=== PATIENT | female | born 1975 | race Caucasian/White ===

== ENCOUNTER 2020-05-30 13:55 | Emergency (ER) | payer OTHER, SELFPAY ==
--- NOTE | ~2020-05-30 | XR_ITS ---
EXAMINATION: XR chest 2V DATE: 05/30/2020 15:19 INDICATION: Cough and shortness of breath. TECHNIQUE: Frontal and lateral views of the chest were obtained. COMPARISON: None. FINDINGS: The chest demonstrates clear lungs without pneumonia, pleural effusion, or pneumothorax. Th e heart size is normal. IMPRESSION: 1. No acute cardiopulmonary disease. Reviewed, dictated and finalized at location A.
[2020-05-30 13:58] VITALS: BP 139/67; PULSE 100; RESP 18; TEMP 37.2; O2SAT 98
[2020-05-30 14:27] VITALS: BP 147/78; PULSE 102; PULSE 103; RESP 18; TEMP 37.3; O2SAT 97
[2020-05-30] MEDS: SODIUM CHLORIDE 0.9% IV 1,000 ML 999 ML IV CONT (15:12)
[2020-05-30] MEDS: KETOROLAC 30 MG/ML VIAL (*BKC) IV PUSH (15:12)
[2020-05-30 15:14] LABS: Basophils Absolute Auto 0.1 K/mm3 (0.0-0.1); Basophils Percent Auto 0.6 % (0.2-1.2); Eosinophils Absolute Auto 0.2 K/mm3 (0-0.3); Eosinophils Percent Auto 1.7 % (0-4.4); Hematocrit 41.8 % (37.0-47.0); Hemoglobin 14.2 g/dL (12.0-15.0); Immature Granulocyte Absolute 0.04 K/mm3 (0.00-0.031); Immature Granulocyte Percent A 0.3 % (0-0.5); Lymphocytes Percent Auto 22.7 % (18.3-44.2); Mean Corpuscular Hemoglobin 29.4 pg (26-34); Mean Corpuscular Volume 86.5 fl (80-100); Mean Platelet Volume 10.1 fl (7.4-10.4); Monocytes Absolute Auto 1.2 K/mm3 (0.1-0.6); Neutrophils Absolute Auto 7.4 K/mm3 (1.3-6.7); Neutrophils Percent Auto 64.7 % (45.5-73.1); Platelet Count Result 327 k/mm3 (150-375); Red Blood Count 4.83 M/mm3 (4.2-5.4); Red Cell Distribution Width 12.7 % (11.5-14.5); White Blood Count 11.5 K/mm3 (4.5-10.0)
--- NOTE | 2020-05-30 15:22 | ED.SOB ---
HPI - SOB/Dyspnea General Chief Complaint: Shortness of Breath/Dyspnea Stated Complaint: shortness breath, tachycardia Time Seen by Provider: 05/30/20 14:35 History of Present Illness HPI Narrative: Patient is a 45-year-old female who presents ER with multiple complaints. Over the course the last week she has developed upper respiratory infection type symptoms. She has been swab for COVID which is come back as negative. She has had sinus congestion with cough. It is also started because some central chest discomfort that is been ongoing for 4 days. It has never gone away. No exertional component. Not particular worsened by taking deep breaths. We will concerns her most is in the evening last night her resting heart rate went up to 140 bpm. She thinks this may have made her chest discomfort slightly worse. She does report that the elevated heart rate corresponded with an elevation in her baseline temperature but she was afebrile. Related Data Home Medications Medication Instructions Recorded Confirmed azithromycin 05/30/20 lisinopril 05/30/20 Allergies Allergy/AdvReac Type Severity Reaction Status Date / Time cefaclor Allergy Unknown HIVES Verified 05/30/20 14:30 codeine Allergy Unknown HIVES Verified 05/30/20 14:30 Sulfa (Sulfonamide Allergy Unknown HIVES Verified 05/30/20 14:30 Antibiotics) Review of Systems Review of Systems: All systems reviewed & are unremarkable except as noted in HPI and below Constitutional: Constitutional: Denies chills, Reports fatigue and Denies fever(s) ENT: Reports nasal congestion and Denies sore throat Cardiovascular: Cardiovascular: Reports chest pain, Reports rapid heart rate and Denies radiating jaw, neck or arm pain Respiratory: Respiratory: Reports cough and Reports dyspnea Gastrointestinal: Gastrointestinal: Denies abdominal pain, Denies nausea and Denies vomiting Musculoskeletal: Musculoskeletal: Denies myalgias and Denies muscle cramps PMFSH Past Medical History Medical History (Updated 05/30/20 @ 18:36 by Jcarlos Garcia MD) Anxiety Surgical History Surgical History (Updated 05/30/20 @ 15:24 by Jcarlos Garcia MD) No history of previous surgery Social History Social History (Updated 05/30/20 @ 15:24 by Jcarlos Garcia MD) Smoking status: Never smoker Gender identity (if verbalized by the patient): Female Exam Narrative: Exam Narrative: GENERAL: Well-appearing, well-nourished, and in no acute distress. HEAD: Normocephalic, atraumatic. CHEST: Clear to auscultation. No respiratory distress. HEART: Regular rate and rhythm. No murmur heard. Normal peripheral pulses. ABDOMEN: Soft, nontender, nondistended. EXTREMITIES: Normal range of motion. No edema. SKIN: Warm, dry, no rash. NEURO: Alert and oriented x3. PSYCH: Normal mood and affect. Course Course Emergency Course: Patient informed of results. Chest discomfort gone with Toradol. May have component of pleurisy from her URI. Vital Signs Vital signs: Vital Signs Temperature 99.0 F 05/30/20 13:58 Pulse Rate 100 05/30/20 13:58 Respiratory Rate 18 05/30/20 13:58 Blood Pressure 139/67 05/30/20 13:58 Pulse Oximetry 98 05/30/20 13:58 Temperature 99.1 F 05/30/20 14:27 Pulse Rate 75 05/30/20 17:12 Respiratory Rate 15 05/30/20 17:12 Blood Pressure 111/59 L 05/30/20 17:12 Pulse Oximetry 98 05/30/20 17:12 MDM - SOB/Dyspnea Lab Data Result diagrams: 05/30/20 15:07 05/30/20 15:07 Labs: Lab Results 05/30/20 05/30/20 05/30/20 Range/Units 15:06 15:07 15:07 WBC 11.5 H (4.5-10.0) K/mm3 RBC 4.83 (4.2-5.4) M/mm3 Hgb 14.2 (12.0-15.0) g/dL Hct 41.8 (37.0-47.0) % MCV 86.5 (80-100) fl MCH 29.4 (26-34) pg MCHC 34.0 (32-36) g/dl RDW 12.7 (11.5-14.5) % Plt Count 327 (150-375) k/mm3 MPV 10.1 (7.4-10.4) fl Immature Gran % (Auto) 0.3 (0-0.5) % Neut % (Auto) 64
[2020-05-30 15:23] LABS: Prothrombin Time 12.8 Seconds (11.1-14.7)
[2020-05-30 15:25] LABS: Anion Gap 7 mmol/L (8-16); Blood Urea Nitrogen 10 mg/dL (7-17); Calcium 8.8 mg/dL (8.4-10.2); Carbon Dioxide 22 mmol/L (22-30); Chloride 109 mmol/L (98-107); Estimated CRCL calculation 92 ml/min; Estimated Glomerular Filt Rate > 60; Glucose 114 mg/dL (65-105); Potassium 4.3 mmol/L (3.4-5.0); Sodium 138 mmol/L (137-145)
[2020-05-30 15:37] LABS: Troponin I < 0.012 ng/mL (0.000-0.034)
--- NOTE | 2020-05-30 16:53 | ECG_ITS ---
Measurements Intervals [place] Rate: 72 P: 46 UT: 133 QRS: 70 QRSD: 86 T: 38 QT: 405 QTc: 444 Interpretive Statements SINUS RHYTHM BORDERLINE ST ABNORMALITY- ANTERIOR LEADS BORDERLINE ECG Electronically Signed On 05-31-2020 6:43:48 CDT by George Saha D.O.
[2020-05-30 17:12] VITALS: BP 111/59; PULSE 75; RESP 15; O2SAT 98
[2020-05-30 18:50] VITALS: BP 147/78; PULSE 82; RESP 18; O2SAT 98
== END 2020-05-30 18:52 | disposition home or self-care (01) ==
PROVIDERS: Emergency Provider Emergency Medicine; PCP Physician Assistant
DX: R09.1 Pleurisy (principal); R94.31 Abnormal electrocardiogram [ECG] [EKG]
CPT/HCPCS: 36415; 71046; 80048; 84484; 85025; 85380; 85610; 85730; 93005; 96361; 96374; 99284; J1885; J7030

== ENCOUNTER 2020-08-07 18:13 | Emergency (ER) | payer OTHER, SELFPAY ==
--- NOTE | ~2020-08-07 | CT_ITS ---
EXAMINATION: CT abdomen pelvis wo con DATE: 08/07/2020 19:39 INDICATION: Right flank pain. Nausea. TECHNIQUE: Computed tomography (CT) of the abdomen and pelvis was performed without intravenous contr ast. Automated exposure control and iterative reconstruction technique were employed. Exam dose: 413 .54 mGy-cm total exam DLP. COMPARISON: None. FINDINGS: The lung bases are clear of infiltrate or consolidation. Normal heart size. No pericardial or pleural effusion. Right foramen of Bochdalek hernia containing fat and a portion of the right kidney. Left foramen of Bochdalek hernia containing fat. The liver, gallbladder, bile ducts, spleen, pancreas and pancreatic duct are unremarkable. Normal mor phology of the adrenal glands. No renal space occupying mass lesion is evident on this limited noncon trast examination. No urinary tract calculus or hydroureteronephrosis is evident. There are bilateral calcified pelvic p hleboliths. Normal caliber of the abdominal aorta. No intraperitoneal or retroperitoneal or pelvic mass lesion or adenopathy or ascites. The urinary bladder, uterus and adnexal areas are unremarkable. Normal appendix. No bowel obstruction, bowel wall thickening, pneumatosis or intraperitoneal free air . Small fat-containing umbilical hernia. Degenerative change at the apophyseal joints with associated grade 1 anterolisthesis at L4-5. There i s degenerative change in the lower thoracic spine. No suspicious osteolytic or osteoblastic lesions. IMPRESSION: No urinary tract calculus or hydroureteronephrosis is detected. Normal appendix Foramen of Bochdalek hernias Reviewed, dictated and finalized at [facility]. Reviewed, dictated and finalized at location A. [employer]
[2020-08-07 18:42] VITALS: BP 144/90; PULSE 69; RESP 20; TEMP 36.6; O2SAT 100
[2020-08-07 19:01] LABS: Add Urine Microscopic? NO; Appearance Urine Clear (Clear); Basophils Absolute Auto 0.06 K/mm3 (0.00-0.10); Basophils Percent Auto 0.6 % (0.0-1.0); Bilirubin Urine Negative (Negative); Blood Urine Negative (Negative); Color Urine Straw (Yellow); Eosinophils Absolute Auto 0.22 K/mm3 (0.02-0.50); Eosinophils Percent Auto 2.3 % (1.0-6.0); Glucose Urine UA Negative (Negative); Hematocrit 41.2 % (35.0-49.0); Hemoglobin 13.9 g/dL (12.0-15.0); Immature Granulocyte Absolute 0.05 K/mm3 (0.00-0.00); Immature Granulocyte Percent A 0.5 % (0.0-0.0); Ketones Urine Negative (Negative); Leukocyte Esterase Ur Negative (Negative); Mean Corpuscular HGB Conc 33.7 g/dL (32.0-36.0); Mean Corpuscular Volume 88.8 fL (78.0-102.0); Mean Platelet Volume 9.9 fl (9.2-11.8); Monocytes Percent Auto 7.2 % (2.0-11.0); Neutrophils Absolute Auto 5.5 K/mm3 (1.7-7.2); Neutrophils Percent Auto 56.4 % (50.0-70.0); Nitrate Urine Negative (Negative); Platelet Count Result 330 K/mm3 (150-420); Protein Urine Negative (Negative); Red Blood Count 4.64 M/mm3 (4.20-5.40); Red Cell Distribution Width 12.4 % (11.6-14.4); Specific Grav Ur <= 1.005 (1.010-1.020); Urobilinogen Urine 0.2 mg/dL (0.2-1.0); White Blood Count 9.7 K/mm3 (4.8-10.8); pH Urine 5.5 (5.0-8.0)
[2020-08-07 19:03] LABS: Pregnancy On Board Control Positive; Urine Pregnancy Test Negative
[2020-08-07 19:20] LABS: Alanine Aminotransferase 16 U/L (14-59); Albumin Level 4.1 g/dL (3.4-5.0); Alkaline Phosphatase 48 U/L (46-116); Anion Gap 11 mmol/L (8-16); Aspartate Amino Transferase < 10 U/L (15-37); Bilirubin,Total 0.4 mg/dL (0.00-1.00); Blood Urea Nitrogen 12 mg/dL (7-18); Calcium 8.7 mg/dL (8.5-10.1); Carbon Dioxide 24 mmol/L (21-32); Chloride 103 mmol/L (98-108); Estimated CRCL calculation 82 ml/min; Estimated Glomerular Filt Rate > 60; Glucose 87 mg/dL (70-99); Osmolality Calculated 284 mOsm/kg (285-295); Potassium 3.7 mmol/L (3.5-5.1); Sodium 138 mmol/L (136-145); Total Protein 7.7 g/dL (6.4-8.2)
[2020-08-07] MEDS: ONDANSETRON INJ 4 MG/2 ML VIAL IV PUSH (19:21)
[2020-08-07] MEDS: KETOROLAC 30 MG/ML VIAL (*BKC) IV PUSH (19:21)
[2020-08-07] MEDS: SODIUM CHLORIDE 0.9% IV 1,000 ML 999 ML IV CONT (19:21)
--- NOTE | 2020-08-07 20:30 | ED.ABDPAIN ---
HPI - Abdominal Pain General Chief Complaint: Abdominal Pain Stated Complaint: Admonial Pain Source: patient History of Present Illness HPI narrative: Some 45-year-old female presents with some right flank pain radiating radiating into her right groin area started earlier today she rates her pain about an 8/10 has been having some nausea with no diarrhea constipation no fever or chills. Patient denies shortness of breath or chest pain or pressure. Does have a history of hypertension and anxiety depression. MD elicited complaint: abdominal pain Onset (ago): hour(s) Pain Consistency: intermittent Location: R flank Severity: moderate Pain scale (0-10): 8 Quality: aching Radiation: R flank Migration to: no migration Exacerbating factors: nothing Relieving factors: nothing Related Data Home Medications Medication Instructions Recorded Confirmed lisinopril 20 mg PO DAILY 05/30/20 08/07/20 buspirone 10 mg PO TID 08/07/20 08/07/20 Allergies Allergy/AdvReac Type Severity Reaction Status Date / Time cefaclor Allergy Unknown HIVES Verified 08/07/20 18:52 codeine Allergy Unknown HIVES Verified 08/07/20 18:52 Sulfa (Sulfonamide Allergy Unknown HIVES Verified 08/07/20 18:52 Antibiotics) Review of Systems Review of Systems: All systems reviewed & are unremarkable except as noted in HPI and below PMFSH Past Medical History Medical History Anxiety Surgical History Surgical History No history of previous surgery Social History Social History Smoking status: Never smoker Gender identity (if verbalized by the patient): Female Exam Const: General: no acute distress Orientation/consciousness: patient oriented x3 HENMT: Head: normal to inspection Eyes: Conjunctivae: conjunctivae normal Neck: Neck: normal visual inspection Chest: Chest palpation & inspection: normal inspection of the chest Resp: Effort & Inspection: normal respiratory effort GI: GI Palp: Yes Soft to palpation : General: Yes CVA tenderness Back/Spine/Pelvis: Back: CVA tenderness Skin: General skin exam: normal color Rashes: no rashes Extrem: General: normal to inspection and no pedal edema Psych: Appearance: grossly normal Mental Status: mental status grossly normal Affect: normal affect Course Course Emergency Course: Patient received some Toradol and currently rates her pain after reassessment from at 10 to about a 4/10 with nausea improved. Vital Signs Vital signs: Vital Signs Temperature 36.6 C 08/07/20 18:42 Pulse Rate 69 08/07/20 18:42 Respiratory Rate 20 08/07/20 18:42 Blood Pressure 144/90 H 08/07/20 18:42 Pulse Oximetry 100 08/07/20 18:42 Temperature 36.6 C 08/07/20 18:42 Pulse Rate 69 08/07/20 18:42 Respiratory Rate 08/07/20 18:42 Blood Pressure 144/90 H 08/07/20 18:42 Pulse Oximetry 100 08/07/20 18:42 MDM - Abdominal Pain Lab Data Result diagrams: 08/07/20 18:56 08/07/20 18:56 Labs: Lab Results 08/07/20 08/07/20 08/07/20 Range/Units 18:56 18:56 18:56 WBC 9.7 (4.8-10.8) K/mm3 RBC 4.64 (4.20-5.40) M/mm3 Hgb 13.9 (12.0-15.0) g/dL Hct 41.2 (35.0-49.0) % MCV 88.8 (78.0-102.0) fL MCH 30.0 (27.0-31.0) pg MCHC 33.7 (32.0-36.0) g/dL RDW 12.4 (11.6-14.4) % Plt Count 330 (150-420) K/mm3 MPV 9.9 (9.2-11.8) fl Immature Gran % (Auto) 0.5 H (0.0-0.0) % Neut % (Auto) 56.4 (50.0-70.0) % Lymph % (Auto) 33.0 (18.0-42.0) % White % (Auto) 7.2 (2.0-11.0) % Eos % (Auto) 2.3 (1.0-6.0) % Baso % (Auto) 0.6 (0.0-1.0) % Lymph # (Auto) 3.20 (1.10-4.50) K/mm3 White # (Auto) 0.70 (0.10-0.90) K/mm3 Eos # (Auto) 0.22 (0.02-0.50) K/mm3 Baso # (Auto) 0.06 (0.00-0.10) K/mm3 Abs Immat Gran (aut
[2020-08-07 21:16] VITALS: BP 140/88; PULSE 70; RESP 20; O2SAT 100
== END 2020-08-07 21:21 | disposition home or self-care (01) ==
PROVIDERS: Emergency Provider Emergency Medicine; PCP Physician Assistant
DX: K52.9 Noninfective gastroenteritis and colitis, unspecified (principal)
CPT/HCPCS: 36415; 74176; 80053; 81003; 81025; 85025; 96361; 96374; 96375; 99283; 99284; J1885; J2405; J7030

== ENCOUNTER 2020-08-12 07:43 | Outpatient (CLI) | payer OTHER, SELFPAY ==
--- NOTE | ~2020-08-12 | US_ITS ---
EXAMINATION: US right upper quadrant DATE: 08/12/2020 08:13 INDICATION: Right upper quadrant abdominal pain. TECHNIQUE: Multiple grayscale and Doppler ultrasound images of the abdomen were obtained. COMPARISON: CT abdomen and pelvis 08/07/2020 FINDINGS: The visualized portions of the head and body of the pancreas are normal. The liver is esthela l without focal lesion. There is normal flow in main portal vein. The gallbladder is normal in size. No gallstones or gallbladder wall thickening. There was no sonographic Porras sign. The common duct i s normal and measures 3 mm. IMPRESSION: 1. Normal right upper quadrant ultrasound. Reviewed, dictated and finalized at location A. ILIZATION TECH
== END 2020-08-12 07:44 | disposition home or self-care (01) ==
LOC: CHSIMG 07:45
PROVIDERS: PCP Physician Assistant; Visit Provider Physician Assistant
DX: R10.31 Right lower quadrant pain (principal); R10.11 Right upper quadrant pain
CPT/HCPCS: 76705

== ENCOUNTER 2021-01-05 16:42 | Outpatient (CLI) | payer OTHER, SELFPAY | END 2021-01-05 16:43 | disposition home or self-care (01) | LOC: ANHCOVIDVC 16:42 | DX: Z23 Encounter for immunization (principal) | CPT/HCPCS: 0001A; 91300 ==

== ENCOUNTER 2021-01-26 16:43 | Outpatient (CLI) | payer OTHER, SELFPAY | END 2021-01-26 16:44 | disposition home or self-care (01) | LOC: ANHCOVIDVC 16:43 | PROVIDERS: PCP Family Medicine | DX: Z23 Encounter for immunization (principal) | CPT/HCPCS: 0002A; 91300 ==

== ENCOUNTER → 2021-02-13 08:03 | Outpatient (CLI) | payer OTHER, SELFPAY ==
[2021-02-13 19:22] LABS: SARS-CoV-2 RNA PCR Negative
== END ==
PROVIDERS: PCP Family Medicine; Visit Provider Internal Medicine Gastroenterology
DX: Z01.812 Encounter for preprocedural laboratory examination (principal); Z20.822 Contact with and (suspected) exposure to COVID-19
CPT/HCPCS: C9803; U0003; U0005

== ENCOUNTER 2021-02-16 00:24 | Day surgery (SDC) | payer OTHER, SELFPAY ==
[2021-02-05 14:39] VITALS: BMI 38.5
[2021-02-16 12:26] VITALS: BP 129/80; PULSE 65; RESP 18; TEMP 36.6; O2SAT 99; BMI 17.4
[2021-02-16] MEDS: LACTATED RINGERS 1,000 ML 150 ML IV CONT (12:39)
--- NOTE | 2021-02-16 12:41 | P.PNAN_ITS ---
Anes - Initial Pre Proc Eval Procedure: Operation Date: 02/16/21 12:45 Proposed Procedures p Esophagogastroduodenoscopy & Colonoscopy - Duane Townsend MD Date/Time: 02/16/21 12:41 Surgeon: Duane Townsend MD Pre Op Diagnosis: abd pain Patient Data Age: 45 Gender: F Height: 5 ft 5 in Weight: 47.5 kg Last Vital Signs Temp 36.6 C 02/16/21 12:26 Pulse 65 02/16/21 12:26 Resp 18 02/16/21 12:26 BP 129/80 02/16/21 12:26 Pulse Ox 99 02/16/21 12:26 Allergies Allergy/AdvReac Type Severity Reaction Status Date / Time cefaclor Allergy Unknown HIVES Verified 02/16/21 12:22 codeine Allergy Unknown HIVES Verified 02/16/21 12:22 Sulfa (Sulfonamide Allergy Unknown HIVES Verified 02/16/21 12:22 Antibiotics) Home Medications Medication Instructions Recorded Confirmed Type buspirone 10 mg PO TID 08/07/20 02/05/21 History lisinopril 20 mg tablet 20 mg PO DAILY #30 tablet 12/04/20 02/05/21 Rx amlodipine 2.5 mg tablet 2.5 mg PO DAILY 12/31/20 02/05/21 History Patient hx anesthesia problems: none Family hx anesthesia problems: none PMFSH Past Medical History Medical History Abdominal pain Acute sinusitis Anxiety Hypertension Obesity (BMI 30-39.9) Psoriasis and similar disorder Surgical History Surgical History No history of previous surgery Social History Social History Smoking packs per day: 1 Smoking cigarettes per day: 20.0 Years smoked: 7 Smoking pack-years: 7.00 Smoking status: Former smoker Alcohol intake: current Alcohol use details: very rarely Substance use: never Substance use type: does not use Living arrangements: alone Additional occupation/education comments: Works at [employer] Gender identity (if verbalized by the patient): Female Spiritual care concerns: No Anes - Eval Final PreProcedure Day of Procedure 02/16/21 12:41 Patient weight: obese Heart: regular rate and rhythm Lungs: clear to auscultation Airway: Mallampati scale class II Neurological: alert and oriented Last oral intake: >/= 8 hours ASA classification: II Emergent: no Anesthetic plan: proceed Anesthesia type and monitoring: general GIVS and standard monitoring Informed Consent: The patient's anesthetic plan and its attendant risks and benefits were discussed with the patient/family/POA. Questions were solicited and answers provided to the satisfaction of the patient/family/POA.
--- NOTE | 2021-02-16 12:53 | PM.HPGS ---
History of Present Illness History of Present Illness Consent: Risks, benefits, and alternatives have been discussed and questions answered. Patient agrees to proceed with procedure. Chief complaint: abd pain Narrative: Eva Wells is a 45 year old female here with intermittent pain in ruq, CT scan revealed right foramen of Bochdalek hernia, never had scopes. Review of Systems Constitutional: Constitutional: Denies headache(s) and Denies weakness Eyes: Eyes: Denies blurry vision ENT: Reports Normal hearing present, Denies headache(s) and Denies neck pain Cardiovascular: Cardiovascular: Denies chest pain and Denies dyspnea Respiratory: Respiratory: Denies dyspnea Gastrointestinal: Gastrointestinal: Reports no additional gastrointestinal complaints Genitourinary: Genitourinary: Denies dysuria Musculoskeletal: Musculoskeletal: Denies neck pain Integumentary/Breasts: Skin/Breast: Denies dry skin Neurologic: Reports Normal hearing present, Denies headache(s) and Denies weakness Psychiatric: Psychiatric: Denies anxiety Endocrine: Endocrine: Denies change in body appearance Hematologic/Lymphatic: Hematologic/Lymphatic: Denies easy bleeding Allergic/Immunologic: Allergic/Immunologic: Denies urticaria PMFSH Past Medical History Medical History (Updated 02/16/21 @ 12:53 by Duane Townsend MD) Abdominal pain Acute sinusitis Anxiety Colon cancer screening Hypertension Obesity (BMI 30-39.9) Psoriasis and similar disorder Surgical History Surgical History No history of previous surgery Social History Social History Smoking packs per day: 1 Smoking cigarettes per day: 20.0 Years smoked: 7 Smoking pack-years: 7.00 Smoking status: Former smoker Alcohol intake: current Alcohol use details: very rarely Substance use: never Substance use type: does not use Living arrangements: alone Additional occupation/education comments: Works at [employer] Gender identity (if verbalized by the patient): Female Spiritual care concerns: No Meds Home Medications and Allergies Home Medications Medication Instructions Recorded Confirmed Type buspirone 10 mg PO TID 08/07/20 02/05/21 History lisinopril 20 mg tablet 20 mg PO DAILY #30 tablet 12/04/20 02/05/21 Rx amlodipine 2.5 mg tablet 2.5 mg PO DAILY 12/31/20 02/05/21 History Allergies Allergy/AdvReac Type Severity Reaction Status Date / Time cefaclor Allergy Unknown HIVES Verified 02/16/21 12:22 codeine Allergy Unknown HIVES Verified 02/16/21 12:22 Sulfa (Sulfonamide Allergy Unknown HIVES Verified 02/16/21 12:22 Antibiotics) Vital Signs Vital Signs - 24 hr 02/16/21 12:26 Temperature 97.8 F Pulse Rate 65 Respiratory Rate 18 Blood Pressure 129/80 Pulse Oximetry 99 Exam Const: General: comfortable and no acute distress HENMT: General nose exam: Normal nares present Eyes: General: appearance normal, both eyes and all related structures Neck: Neck: no JVD Resp: Auscultation: clear to auscultation bilaterally Cardio: Rate: regular rate Rhythm: regular rhythm GI: Inspection: non-distended GI Palp: Yes Soft to palpation Skin: General skin exam: normal color Neuro: General: gait normal Speech: normal speech Extrem: General: normal to inspection Psych: Mental Status: mental status grossly normal Assessment and Plan Assessment and plan (1) Abdominal pain: Code(s): R10.9 - Unspecified abdominal pain Status: Acute Assessment and Plan: egd with bx. If scopes negative then consider surgery referral (2) Colon cancer screening: Code(s): Z12.11 - Encounter for screening for malignant neoplasm of colon Status: Acute Assessment and Plan: colonoscopy
[2021-02-16 13:24] VITALS: BP 98/68; PULSE 72; RESP 25; O2SAT 98
[2021-02-16 13:30] VITALS: BP 105/35; PULSE 68; RESP 20; O2SAT 98
[2021-02-16 13:40] VITALS: BP 113/58; PULSE 56; RESP 17; O2SAT 99
== END 2021-02-16 13:49 | disposition home or self-care (01) ==
PROVIDERS: PCP Family Medicine; Visit Provider Internal Medicine Gastroenterology
PROC: 0DJ08ZZ Inspection of Upper Intestinal Tract, Via Natural or Artificial Opening Endoscopic (ICD-10-PCS; CPT 43235; principal; 2021-02-16 12:45)
DX: R10.11 Right upper quadrant pain (principal); Z12.11 Encounter for screening for malignant neoplasm of colon; K29.50 Unspecified chronic gastritis without bleeding; K57.30 Diverticulosis of large intestine without perforation or abscess without bleeding; K64.8 Other hemorrhoids; E66.9 Obesity, unspecified; I10 Essential (primary) hypertension; L40.9 Psoriasis, unspecified; F41.9 Anxiety disorder, unspecified; Z87.891 Personal history of nicotine dependence
CPT/HCPCS: 43239; 45378; 87081; 88305; C9803; J2704; J7120; U0003; U0005

== ENCOUNTER 2021-03-09 08:01 | Outpatient (CLI) | payer OTHER, SELFPAY ==
--- NOTE | ~2021-03-09 | US_ITS ---
US abdomen complete EXAMINATION: US Abdomen Complete INDICATION: Abdominal pain PROCEDURE: Realtime High Resolution abdomen ultrasound. COMPARISON: No prior studies for comparison FINDINGS: Gallbladder within normal limits. No gallstones, pericholecystic fluid, gallbladder wall t hickening or biliary dilatation. Common bile duct measures 5 mm. Liver echotexture within normal limits without focal mass. Pancreas within normal limits. Pancreati c tail is obscured by bowel gas. Spleen is unremarkeable. Renal echotexture is within normal limits bilaterally without hydronephrosis, contour deforming mass or renal stone. Right kidney measures 11.4 cm. Left kidney measures 11.4 cm. Visualized aspects of the aorta and IVC are within normal limits. Portal vein is patent. No sonograph ic Porras's sign indicated by the technologist. IMPRESSION: 1: Normal abdominal ultrasound. Reviewed, dictated and finalized at location A.
--- NOTE | ~2021-03-09 | CT_ITS ---
EXAMINATION: CT abdomen pelvis w con EXAM DATE: 03/09/2021 09:00 INDICATION: RT sided abd pain x 6mo w/ N/D -worse w/ exercise. TECHNIQUE: Spiral CT of the abdomen and pelvis was performed following intravenous injection of 100 m L Omnipaque 350. Axial, coronal and sagittal images of the abdomen and pelvis were reviewed. The do se-length product (DLP) for this examination was 1101.90 mGy-cm. The exposure was tailored according to patient size (auto mA exposure control), and iterative reconstruction (ASIR) was used as addition al dose reduction technique. Comparison is made to prior examination from 08/07/2020. FINDINGS: The liver, spleen, adrenal glands and pancreas are unremarkable. Gallbladder is unremarkab le. No biliary obstruction. Portal and splenic veins are patent. Kidneys enhance symmetrically. T here is no hydronephrosis. The uterus and ovaries are unremarkable, no adnexal mass. Calcifications in the pelvis are believed to be phleboliths. The bladder is unremarkable. There is no retroperit najera or pelvic lymphadenopathy. The appendix is normal. There is small sliding gastroesophageal hiatal hernia. There is expected am ount of colonic stool. No free intraperitoneal gas. The heart is normal in size. There are no pe ricardial or pleural effusions. Calcified granuloma in right and left lower lobes. There are no ost eoblastic or osteolytic lesions identified. IMPRESSION: 1. Small hiatal hernia. Reviewed, dictated and finalized at location B. IMPRESSION: 1. Small hiatal hernia.
[2021-03-09 08:20] LABS: Estimated Glomerular Filt Rate > 60
== END 2021-03-09 08:02 | disposition home or self-care (01) ==
LOC: CHSIMG 08:02
PROVIDERS: PCP Family Medicine; Visit Provider Family Medicine
DX: R10.9 Unspecified abdominal pain (principal); Q79.0 Congenital diaphragmatic hernia
CPT/HCPCS: 74177; 76700; Q9967

== ENCOUNTER 2021-06-04 17:26 | Outpatient (CLI) | payer OTHER, SELFPAY ==
[2021-06-04 18:24] LABS: SARS-CoV-2 RNA PCR Positive (Negative)
== END 2021-06-04 17:27 | disposition home or self-care (01) ==
LOC: CHSLAB 17:29
PROVIDERS: PCP Family Medicine; Visit Provider Family Medicine
DX: U07.1 COVID-19 (principal)
CPT/HCPCS: C9803; U0003; U0005

== ENCOUNTER 2021-06-05 13:56 | Outpatient (CLI) | payer OTHER, SELFPAY ==
[2021-06-05] MEDS: ACETAMINOPHEN 325 MG TABLET 650 MG PO (14:23)
[2021-06-05] MEDS: diphenhydrAMINE HCl CAP 25 MG CAPSULE PO (14:24)
[2021-06-05] MEDS: FAMOTIDINE 20 MG TABLET PO (14:24)
--- NOTE | 2021-06-05 16:49 | PC.NURSE ---
patient tolerated infusion. questions answered. vs stable. walked out with staff. masked. denies sob.
== END 2021-06-05 13:57 | disposition home or self-care (01) ==
LOC: CHSTREATRM 13:58
PROVIDERS: PCP Family Medicine; Visit Provider Family Medicine
DX: Z23 Encounter for immunization (principal); U07.1 COVID-19; E66.9 Obesity, unspecified
CPT/HCPCS: A9270; J7050; M0239; M0243

== ENCOUNTER 2021-06-30 17:07 | Outpatient (CLI) | payer OTHER, SELFPAY ==
--- NOTE | ~2021-06-30 | MM_ITS ---
EXAMINATION: MM screening liv BI w noel HISTORY: Screening mammogram TECHNIQUE: Craniocaudal and mediolateral oblique 3-D tomosynthesis images were obtained and synthetic 2-D images were generated. CAD analysis was submitted and interpreted. COMPARISON: 04/05/2011 BREAST PARENCHYMAL COMPOSITION: The breasts are heterogeneously dense, which may obscure small masses . FINDINGS: RIGHT BREAST: A mass is present in the middle third of the lower, slightly outer breast 6.8 cm from t he nipple. LEFT BREAST: There is no evidence of suspicious mass, calcification, or architectural distortion to s uggest malignancy. There has been no significant interval change. IMPRESSION: 1. Right breast mass. 2. Additional mammographic views and possible breast ultrasound are recommended. BI-RADS Category 0: Incomplete: Needs additional imaging evaluation. Reviewed, dictated and finalized at location A. IMPRESSION: 1. Right breast mass. 2. Additional mammographic views and possible breast ultrasound are recommended . BI-RADS Category 0: Incomplete: Needs additional imaging evaluation.
== END 2021-06-30 17:08 | disposition home or self-care (01) ==
LOC: ANHIMG 17:10
PROVIDERS: PCP Family Medicine; Visit Provider Obstetrics & Gynecology
DX: Z12.31 Encounter for screening mammogram for malignant neoplasm of breast (principal); R92.8 Other abnormal and inconclusive findings on diagnostic imaging of breast
CPT/HCPCS: 77063; 77067

== ENCOUNTER 2021-07-21 13:25 | Outpatient (CLI) | payer OTHER, SELFPAY ==
--- NOTE | ~2021-07-21 | MMUS_ITS ---
EXAMINATION: MM diagnostic liv RT w noel, US breast RT limited HISTORY: Right breast mass reported on 06/30/2021 screening mammogram TECHNIQUE: Additional 3-D tomosynthesis images of the right breast were performed and synthetic 2-D i mages were generated. CAD analysis was submitted and interpreted. High resolution upper outer and low er-outer quadrant right breast ultrasound was performed. COMPARISON: 06/30/2021, 04/05/2011 bilateral digital screening mammogram examinations FINDINGS: MAMMOGRAPHIC FINDINGS: There is a 7 mm circumscribed mildly lobular opacity in the lower outer quadrant of the right breast with minimal superficial calcification, possibly a small fibroadenoma. Stable small circumscribed right axillary tail lymph node since 2010. No suspicious mass or architectural distortion, malignant calcification, skin thickening or retractio n of the right breast is evident. ULTRASOUND: 7:00 5 cm from nipple: Mildly irregular hypoechoic or sonolucent lesion with antiparallel configurati on, measuring approximately 6.2 x 3.5 x 4.3 mm dimension. This likely corresponds to the 7 mm mammogr aphic opacity reported in lower outer quadrant of the right breast. Ultrasound-guided aspiration atte mpt is recommended, with biopsy if this does not resolve with aspiration. 12:00 3 cm from nipple: 2.5 mm cyst 9:00 6 cm from nipple: Parallel circumscribed 2.4 x 4.8 x 5.0 mm cyst 9:00 8 cm from nipple: Parallel circumscribed 2.7 x 3.9 mm hypoechoic lesion without internal vascula rity or shadowing, benign in appearance 10:00 7 cm from nipple: 4.0 x 2.5 x 2.9 mm cyst IMPRESSION: 1. Anti-parallel mildly irregular hypoechoic or sonolucent lesion at right breast 7:00 position 5 cm from nipple 2. Ultrasound-guided aspiration attempt and if necessary biopsy of 7:00 lesion is recommended BI-RADS category 4, suspicious findings. Dr. Ren telephoned the report and ultrasound guided aspiration attempt and if necessary biopsy on at [address] Campbell's Label Remover's voicemail. Reviewed, dictated and finalized at location A. IMPRESSION: 1. Anti-parallel mildly irregular hypoechoic or sonolucent lesion at right hima st 7:00 position 5 cm from nipple 2. Ultrasound-guided aspiration attempt and if necessary biopsy of 7:00 lesion is recommended BI-RADS category 4, suspicious findings. Dr. Ren telephoned the report and ultrasound guided aspiration attempt and if necessary biopsy on 07/21/[address] Campbell's Label Remover' s voicemail.
== END 2021-07-21 13:26 | disposition home or self-care (01) ==
LOC: ANHIMG 13:27
PROVIDERS: PCP Family Medicine; Visit Provider Obstetrics & Gynecology
DX: R92.8 Other abnormal and inconclusive findings on diagnostic imaging of breast (principal)
CPT/HCPCS: 76642; 77061; 77065; G0279

== ENCOUNTER 2022-02-26 22:43 | Emergency (ER) | payer OTHER, SELFPAY ==
--- NOTE | ~2022-02-26 | CT_ITS ---
EXAMINATION: CT abdomen pelvis wo con DATE: 02/27/2022 00:13 INDICATION: Diarrhea TECHNIQUE: Computed tomography (CT) of the abdomen and pelvis was performed without intravenous contr ast. The dose-length product (DLP) was 1359.19 mGy-cm. Automated exposure control and iterative recon struction technique were employed. COMPARISON: 03/09/2021 FINDINGS: A calcified nodule of the right lower lobe is consistent with old granulomatous disease. Th e heart size is normal. Within the limitations of noncontrast examination, the liver, spleen, pancrea s, gallbladder, and adrenal glands are normal. The kidneys are unremarkable. No pathologically enlarg ed abdominal or pelvic lymph nodes are identified. There is no free intraperitoneal gas or evidence o f bowel obstruction. There is liquid stool in the colon to the level of the rectum. There is mild lum bar spondylosis. There is a fat-containing umbilical hernia. IMPRESSION: 1. Liquid stool in the colon to the level of the rectum, consistent with history of diarrhea. Reviewed, dictated and finalized at location A. IMPRESSION: 1. Liquid stool in the colon to the level of the rectum, consistent with histor y of diarrhea.
[2022-02-26 23:07] VITALS: BP 156/81; PULSE 87; RESP 16; TEMP 36.6; O2SAT 96
--- NOTE | 2022-02-26 23:21 | ED.NAVMDI ---
HPI - Nausea/Vomiting/Diarrhea General Chief complaint: Nausea/Vomiting/Diarrhea Stated complaint: diarrhea Time Seen by Provider: 02/26/22 22:47 Source: patient and RN notes reviewed Mode of arrival: ambulatory Limitations: no limitations History of Present Illness MD elicited complaint: diarrhea Onset (ago): day(s) (7) Description of vomiting: other (no vomiting) Description of diarrhea: watery and semi-solid Associated nausea: Yes Associated abdominal pain: Yes Location of pain: LLQ Radiation: does not radiate Pain consistency: constant Severity: mild Pain scale (0-10): 2 Quality: cramping and dull Exacerbating factors: none Relieving factors: medication Associated symptoms: headaches, nausea/vomiting and tenesmus Treatment prior to arrival: immodium Related Data Allergies Allergy/AdvReac Type Severity Reaction Status Date / Time cefaclor Allergy Unknown HIVES Verified 10/07/21 10:22 codeine Allergy Unknown HIVES Verified 10/07/21 10:22 Sulfa (Sulfonamide Allergy Unknown HIVES Verified 10/07/21 10:22 Antibiotics) Review of Systems Review of Systems: All systems reviewed & are unremarkable except as noted in HPI and below Constitutional: Constitutional: Reports no additional constitutional complaints Eyes: Eyes: Reports no additional eye complaints ENT: Reports system reviewed and no additional complaints, except as documented Cardiovascular: Cardiovascular: Reports no additional cardiovascular complaints Respiratory: Respiratory: Reports no additional respiratory complaints Gastrointestinal: Gastrointestinal: Reports no additional gastrointestinal complaints Genitourinary: Genitourinary: Reports no additional female genitourinary complaints Musculoskeletal: Musculoskeletal: Reports no additional musculoskeletal complaints Integumentary/Breasts: Skin/Breast: Reports system reviewed and no additional complaints, except as docu Neurologic: Reports system reviewed and no additional complaints, except as documented Psychiatric: Psychiatric: Reports no additional psychiatric complaints Endocrine: Endocrine: Reports no additional endocrine complaints Hematologic/Lymphatic: Hematologic/Lymphatic: Reports no additional hematologic/lymphatic complaints Allergic/Immunologic: Allergic/Immunologic: Reports no additional allergic/immunologic complaints PMFSH Past Medical History Medical History Abdominal pain Acute sinusitis Anxiety Breast lump Colon cancer screening Congenital diaphragmatic hernia of foramen of [place] Diarrhea GERD (gastroesophageal reflux disease) Hypertension Obesity (BMI 30-39.9) Psoriasis and similar disorder Surgical History Surgical History [place] teeth extracted Family History Family History Father , age 62 Heart disease Diabetes mellitus Hypertension Cancer of kidney Kidney disease Mother Hypertension Grandparent Cerebrovascular accident Lung cancer Social History Social History Smoking packs per day: 1 Smoking cigarettes per day: 20.0 Years smoked: 7 Smoking pack-years: 7.00 Smoking status: Former smoker Tobacco type: cigarettes Alcohol intake: current Alcohol use details: very rarely Substance use: never Substance use type: does not use Additional occupation/education comments: Works at [employer]/ also is a student Gender identity (if verbalized by the patient): Female Spiritual care concerns: No Exam Const: General: healthy appearing and no acute distress Nutritional Appearance: well nourished Orientation/consciousness: patient oriented x3 Limitations: no limitations HENMT: Head: normal to inspection Ears: external ears normal, TM's normal bilaterally and EAC's normal General nose exam:
[2022-02-26 23:39] LABS: Basophils Absolute Auto 0.05 K/mm3 (0.00-0.10); Basophils Percent Auto 0.6 % (0.0-1.0); Eosinophils Absolute Auto 0.19 K/mm3 (0.02-0.50); Eosinophils Percent Auto 2.2 % (1.0-6.0); Hematocrit 40.4 % (35.0-49.0); Hemoglobin 13.9 g/dL (12.0-15.0); Immature Granulocyte Absolute 0.02 K/mm3 (0.00-0.00); Immature Granulocyte Percent A 0.2 % (0.0-0.0); Lymphocytes Absolute Auto 2.62 K/mm3 (1.10-4.50); Lymphocytes Percent Auto 30.8 % (18.0-42.0); Mean Corpuscular HGB Conc 34.4 g/dL (32.0-36.0); Mean Corpuscular Hemoglobin 29.8 pg (27.0-31.0); Mean Corpuscular Volume 86.7 fL (78.0-102.0); Mean Platelet Volume 9.6 fl (9.2-11.8); Monocytes Percent Auto 8.2 % (2.0-11.0); Neutrophils Absolute Auto 4.9 K/mm3 (1.7-7.2); Platelet Count Result 291 K/mm3 (150-420); Red Blood Count 4.66 M/mm3 (4.20-5.40); Red Cell Distribution Width 11.9 % (11.6-14.4); White Blood Count 8.5 K/mm3 (4.8-10.8)
[2022-02-26 23:40] VITALS: BP 130/81; PULSE 80; RESP 20
[2022-02-26 23:41] VITALS: BP 131/70; BP 138/80; PULSE 84; PULSE 86; RESP 20
[2022-02-26 23:52] LABS: Alanine Aminotransferase 25 U/L (14-59); Albumin Level 3.5 g/dL (3.4-5.0); Alkaline Phosphatase 42 U/L (46-116); Anion Gap 8 mmol/L (8-16); Aspartate Amino Transferase 17 U/L (15-37); Bilirubin,Total 0.4 mg/dL (0.00-1.00); Blood Urea Nitrogen 14 mg/dL (7-18); Calcium 8.3 mg/dL (8.5-10.1); Carbon Dioxide 26 mmol/L (21-32); Chloride 103 mmol/L (98-108); Estimated CRCL calculation 65 ml/min; Estimated Glomerular Filt Rate 59; Glucose 118 mg/dL (70-99); Lipase 67 U/L (73-393); Osmolality Calculated 285 mOsm/kg (285-295); Potassium 3.1 mmol/L (3.5-5.1); Sodium 137 mmol/L (136-145)
[2022-02-26] MEDS: SODIUM CHLORIDE 0.9% IV 1,000 ML 999 ML IV CONT (23:55)
[2022-02-26] MEDS: ONDANSETRON INJ 4 MG/2 ML VIAL IV PUSH (23:55)
[2022-02-26 23:56] LABS: SPREG INTERNAL CONTROL Positive; Serum Qual hCG Negative
[2022-02-26] MEDS: PANTOPRAZOLE SODIUM IV 40 MG VIAL IV PUSH (23:57)
[2022-02-27] VITALS: BP 135/85; PULSE 87; RESP 20; O2SAT 99
--- NOTE | 2022-02-27 | PC.NURSE ---
Care of pt resumed, pt. sitting in bed, changed to a gown. IV fluids started as per order. Pt awaiting CT scan per order, c/o some abd cramping and pain. Meds given per order.
[2022-02-27 00:12] LABS: Add Urine Microscopic? NO; Appearance Urine Clear (Clear); Bilirubin Urine Negative (Negative); Blood Urine Negative (Negative); Color Urine Light Yellow (Yellow); Glucose Urine UA Negative (Negative); Ketones Urine Negative (Negative); Leukocyte Esterase Ur Negative LEU/UL (Negative); Nitrate Urine Negative (Negative); Protein Urine Negative (Negative); Urobilinogen Urine 0.2 mg/dL (0.2-1.0)
[2022-02-27] MEDS: POTASSIUM CHLORIDE 20 MEQ TABLET 40 MEQ PO (00:48)
[2022-02-27 01:25] VITALS: BP 128/85; PULSE 75; RESP 18; TEMP 36.6; O2SAT 98
== END 2022-02-27 01:26 | disposition home or self-care (01) ==
PROVIDERS: Emergency Provider Emergency Medicine
DX: K62.89 Other specified diseases of anus and rectum (principal); K52.9 Noninfective gastroenteritis and colitis, unspecified
CPT/HCPCS: 36415; 74176; 80053; 81003; 83690; 84703; 85025; 96361; 96374; 96375; 99284; A9270; C9113; J2405; J7030

== ENCOUNTER 2022-03-01 14:48 | Outpatient (CLI) | payer OTHER, SELFPAY ==
[2022-03-01 15:05] LABS: Hematocrit 38.6 % (35.0-49.0); Hemoglobin 13.6 g/dL (12.0-15.0); Mean Corpuscular HGB Conc 35.2 g/dL (32.0-36.0); Mean Corpuscular Hemoglobin 30.5 pg (27.0-31.0); Mean Corpuscular Volume 86.5 fL (78.0-102.0); Mean Platelet Volume 9.9 fl (9.2-11.8); Platelet Count Result 309 K/mm3 (150-420); Red Blood Count 4.46 M/mm3 (4.20-5.40); White Blood Count 7.8 K/mm3 (4.8-10.8)
[2022-03-01 15:20] LABS: Alanine Aminotransferase 33 U/L (14-59); Albumin Level 3.5 g/dL (3.4-5.0); Alkaline Phosphatase 41 U/L (46-116); Anion Gap 7 mmol/L (8-16); Aspartate Amino Transferase 17 U/L (15-37); Bilirubin,Total 0.4 mg/dL (0.00-1.00); Blood Urea Nitrogen 11 mg/dL (7-18); Calcium 8.6 mg/dL (8.5-10.1); Carbon Dioxide 24 mmol/L (21-32); Chloride 105 mmol/L (98-108); Estimated Glomerular Filt Rate > 60; Glucose 106 mg/dL (70-99); Osmolality Calculated 281 mOsm/kg (285-295); Potassium 4.1 mmol/L (3.5-5.1); Sodium 136 mmol/L (136-145); Total Protein 7.1 g/dL (6.4-8.2)
[2022-03-01 15:22] LABS: CRP < 0.2 mg/dL (0.0-0.9)
[2022-03-06 18:14] LABS: Calprotectin, Stool 17 mcg/g
[2022-03-09 00:13] LABS: Lactoferrin, Stool Negative (Negative)
== END 2022-03-01 14:49 | disposition home or self-care (01) ==
LOC: CHSLAB 14:51
PROVIDERS: PCP Family Medicine; Visit Provider Family Medicine
DX: R19.7 Diarrhea, unspecified (principal)
CPT/HCPCS: 36415; 80053; 83630; 83993; 85027; 86140; 87045; 87177; 87209; 87324; 87427

== ENCOUNTER 2022-03-19 14:09 | Outpatient (CLI) | payer OTHER, SELFPAY ==
[2022-03-19 14:22] LABS: Hematocrit 39.5 % (35.0-49.0); Hemoglobin 13.7 g/dL (12.0-15.0); Mean Corpuscular HGB Conc 34.7 g/dL (32.0-36.0); Mean Corpuscular Hemoglobin 30.2 pg (27.0-31.0); Mean Platelet Volume 9.9 fl (9.2-11.8); Platelet Count Result 329 K/mm3 (150-420); Red Blood Count 4.54 M/mm3 (4.20-5.40); Red Cell Distribution Width 12.1 % (11.6-14.4); White Blood Count 7.5 K/mm3 (4.8-10.8)
[2022-03-19 14:43] LABS: Alanine Aminotransferase 23 U/L (14-59); Albumin Level 3.8 g/dL (3.4-5.0); Alkaline Phosphatase 50 U/L (46-116); Anion Gap 9 mmol/L (8-16); Aspartate Amino Transferase 12 U/L (15-37); Bilirubin,Total 0.5 mg/dL (0.00-1.00); Blood Urea Nitrogen 8 mg/dL (7-18); Calcium 8.7 mg/dL (8.5-10.1); Carbon Dioxide 23 mmol/L (21-32); Chloride 106 mmol/L (98-108); Estimated Glomerular Filt Rate > 60; Glucose 94 mg/dL (70-99); Osmolality Calculated 284 mOsm/kg (285-295); Potassium 3.8 mmol/L (3.5-5.1); Sodium 138 mmol/L (136-145); Total Protein 7.3 g/dL (6.4-8.2)
== END 2022-03-19 14:10 | disposition home or self-care (01) ==
LOC: CHSLAB 14:11
PROVIDERS: PCP Family Medicine; Visit Provider Nurse Practitioner Family
DX: R19.7 Diarrhea, unspecified (principal)
CPT/HCPCS: 36415; 80053; 85027

== ENCOUNTER 2022-05-14 17:41 | Emergency (ER) | payer OTHER, SELFPAY ==
--- NOTE | ~2022-05-14 | XR_ITS ---
EXAMINATION: XR hip LT min 2V DATE: 05/14/2022 19:40 INDICATION: Low back pain radiating down the left leg. TECHNIQUE: 2 views of left hip were obtained. COMPARISON: Left hip radiographs 12/15/2006 FINDINGS: Bone alignment is normal. No fracture. There is mild left hip osteoarthritis. IMPRESSION: 1. Mild left hip osteoarthritis. Reviewed, dictated and finalized at location A.
--- NOTE | ~2022-05-14 | CT_ITS ---
EXAMINATION: CT lumbar spine wo con DATE: 05/14/2022 19:39 INDICATION: Low back pain radiating down the left leg. TECHNIQUE: Computed tomography (CT) of the lumbar spine was performed without intravenous contrast. A utomated exposure control and iterative reconstruction technique were employed. The dose-length produ ct was 1416.09 mGy-cm. COMPARISON: None FINDINGS: There is 5 degrees dextrocurvature of lumbar spine. There is 4 mm anterolisthesis of L4 on L5. There is a benign bone island in L4 vertebral body. There is moderately decreased disc height at T10-T11, severely decreased disc height at T11-T12, and mildly decreased disc height at L4-L5. The fo llowing disc levels are specifically discussed: L1-L2: The disc does not extend beyond the endplate margin. There is mild bilateral facet joint osteo arthritis. There is no neural foraminal stenosis. There is no central canal stenosis. L2-L3: The disc is bulging. There is mild bilateral facet joint osteoarthritis. There is mild bilater al neural foraminal stenosis. There is mild central canal stenosis. L3-L4: The disc is bulging. There is severe bilateral facet joint osteoarthritis. There is mild bilat eral neural foraminal stenosis. There is mild central canal stenosis. L4-L5: The disc is bulging. There is severe bilateral facet joint osteoarthritis. There is moderate b ilateral neural foraminal stenosis. There is mild central canal stenosis. L5-S1: The disc does not extend beyond the endplate margin. There is severe bilateral facet joint ost eoarthritis. There is no neural foraminal stenosis. There is no central canal stenosis. IMPRESSION: 1. Moderate lumbar spondylosis and severe lower thoracic spondylosis. Reviewed, dictated and finalized at location A.
--- NOTE | 2022-05-14 18:36 | ED.BACK ---
HPI - Back Pain/Injury General Chief Complaint: Back Pain/Injury Stated Complaint: L sided back and hip pain Time Seen by Provider: 05/14/22 17:42 Source: patient Mode of arrival: ambulatory History of Present Illness HPI Narrative: 47-year-old female with obesity, psoriasis, anxiety, GERD, presents to the ER with Chronic -- left sacroiliac pain radiating down left thigh. no motor/ sensory loss. No bladder/ bowel involvement. No back pain. No history of trauma. The patient has been doing yoga with some improvement she went to a chiropractor without any improvement. MD elicited complaint: back pain Onset (ago): week(s) Timing: constant and intermittent Severity: moderate Similar Symptoms Previously: No Quality: aching Location: lumbar spine Radiation: none Exacerbating factors: movement Relieving factors: immobilization Associated symptoms: denies other symptoms Work related injury: No Related Data Allergies Allergy/AdvReac Type Severity Reaction Status Date / Time cefaclor Allergy Unknown HIVES Verified 04/01/22 09:21 codeine Allergy Unknown HIVES Verified 04/01/22 09:21 Sulfa (Sulfonamide Allergy Unknown HIVES Verified 04/01/22 09:21 Antibiotics) Review of Systems Review of Systems: All systems reviewed & are unremarkable except as noted in HPI and below Constitutional: Constitutional: Reports as per HPI and Reports no additional constitutional complaints Eyes: Eyes: Reports as per HPI and Reports no additional eye complaints ENT: Reports system reviewed and no additional complaints, except as documented and Reports as per HPI Cardiovascular: Cardiovascular: Reports as per HPI and Reports no additional cardiovascular complaints Respiratory: Respiratory: Reports as per HPI and Reports no additional respiratory complaints Gastrointestinal: Gastrointestinal: Reports as per HPI and Reports no additional gastrointestinal complaints Genitourinary: Genitourinary: Reports no additional female genitourinary complaints Musculoskeletal: Musculoskeletal: Reports no additional musculoskeletal complaints and Reports as per HPI Comments: pain in left sacroiliac joint. Denied pain in lumbar spine Integumentary/Breasts: Skin/Breast: Reports system reviewed and no additional complaints, except as docu and Reports as per HPI Neurologic: Reports system reviewed and no additional complaints, except as documented and Reports as per HPI Psychiatric: Psychiatric: Reports no additional psychiatric complaints and Reports as per HPI Endocrine: Endocrine: Reports no additional endocrine complaints and Reports as per HPI Hematologic/Lymphatic: Hematologic/Lymphatic: Reports no additional hematologic/lymphatic complaints and Reports as per HPI Allergic/Immunologic: Allergic/Immunologic: Reports no additional allergic/immunologic complaints and Reports as per HPI PMFSH Past Medical History Medical History Abdominal pain Acute sinusitis Anxiety Breast lump Colon cancer screening Congenital diaphragmatic hernia of foramen of [place] Diarrhea GERD (gastroesophageal reflux disease) Hypertension Obesity (BMI 30-39.9) Psoriasis and similar disorder Surgical History Surgical History [place] teeth extracted Family History Family History Father , age 62 Heart disease Diabetes mellitus Hypertension Cancer of kidney Kidney disease Mother Hypertension Grandparent Cerebrovascular accident Lung cancer Social History Social History Smoking packs per day: 1 Smoking cigarettes per day: 20.0 Years smoked: 7 Smoking pack-years: 7.00 Smoking status: Never smoker Tobacco type: cigarettes Alcohol intake: current Alcohol use details: very rarely Substance use: never Sub
[2022-05-14 18:50] VITALS: BP 136/80; PULSE 66; RESP 20; TEMP 35.9; O2SAT 98
--- NOTE | 2022-05-14 19:19 | PC.NURSE ---
report to tootie baez
[2022-05-14 19:21] LABS: Add Urine Microscopic? YES; Appearance Urine Clear (Clear); Bilirubin Urine Negative (Negative); Blood Urine Negative (Negative); Color Urine Light Yellow (Yellow); Glucose Urine UA Negative (Negative); Ketones Urine Negative (Negative); Leukocyte Esterase Ur Trace (Negative); Nitrate Urine Negative (Negative); Protein Urine Negative (Negative); Urobilinogen Urine 0.2 mg/dL (0.2-1.0)
[2022-05-14 19:23] LABS: Pregnancy On Board Control Positive; Urine Pregnancy Test Negative
[2022-05-14 19:27] LABS: Bacteria Urine 1+ /hpf; RBC Urine 0-2 /hpf (0-2); Squamous Epithelial Cell Urine Few /hpf (Few); WBC Urine 0-3 /hpf (0-3)
--- NOTE | 2022-05-14 20:30 | PC.NURSE ---
pt pain is 6 out of 10. Md Lau updated and pt informed Md Lau that she did not opioid based pain medication because she had to drive home.
[2022-05-14 20:31] VITALS: BP 157/89; PULSE 89; RESP 18; TEMP 37; O2SAT 93
== END 2022-05-14 20:33 | disposition home or self-care (01) ==
PROVIDERS: Emergency Provider Internal Medicine Critical Care Medicine; PCP Family Medicine
DX: M47.816 Spondylosis without myelopathy or radiculopathy, lumbar region (principal); M47.814 Spondylosis without myelopathy or radiculopathy, thoracic region; K21.9 Gastro-esophageal reflux disease without esophagitis; I10 Essential (primary) hypertension
CPT/HCPCS: 72131; 73502; 81001; 81025; 99284

== ENCOUNTER 2022-08-20 11:48 | Outpatient (CLI) | payer OTHER, SELFPAY ==
--- NOTE | ~2022-08-20 | MM_ITS ---
EXAMINATION: MM screening liv BI w noel HISTORY: Screening mammogram TECHNIQUE: Craniocaudal and mediolateral oblique 3-D tomosynthesis images were obtained and synthetic 2-D images were generated. CAD analysis was submitted and interpreted. COMPARISON: 07/21/2021, 06/30/2021, 711 BREAST PARENCHYMAL COMPOSITION: The breasts are heterogeneously dense, which may obscure small masses . FINDINGS: No suspicious mass, calcification, or architectural distortion are identified in either amanda ast to suggest malignancy. There has been no suspicious interval change. IMPRESSION: 1. No mammographic evidence of malignancy. 2. Recommend routine screening mammography in one year. BI-RADS Category 1: Negative Reviewed, dictated and finalized at location A. 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
== END 2022-08-20 11:49 | disposition home or self-care (01) ==
PROVIDERS: PCP Family Medicine; Visit Provider Obstetrics & Gynecology
DX: Z12.31 Encounter for screening mammogram for malignant neoplasm of breast (principal)
CPT/HCPCS: 77063; 77067

== ENCOUNTER 2022-11-02 13:19 | Outpatient (CLI) | payer OTHER, SELFPAY | END 2022-11-02 13:20 | disposition home or self-care (01) | LOC: CHSLAB 13:21 | PROVIDERS: PCP Family Medicine; Visit Provider Nurse Practitioner Family | DX: T78.40XA Allergy, unspecified, initial encounter (principal) | CPT/HCPCS: 36415; 82785; 86003 ==

== ENCOUNTER 2022-12-15 15:01 | Outpatient (CLI) | payer OTHER, SELFPAY ==
[2022-12-15 15:15] LABS: Hematocrit 39.6 % (35.0-49.0); Hemoglobin 13.7 g/dL (12.0-15.0); Mean Corpuscular HGB Conc 34.6 g/dL (32.0-36.0); Mean Corpuscular Hemoglobin 29.8 pg (27.0-31.0); Mean Corpuscular Volume 86.1 fL (78.0-102.0); Mean Platelet Volume 9.5 fl (9.2-11.8); Platelet Count Result 331 K/mm3 (150-420); Red Cell Distribution Width 12.4 % (11.6-14.4); White Blood Count 8.5 K/mm3 (4.8-10.8)
[2022-12-15 15:51] LABS: Thyroid Stimulating Hormone Reflex 0.72 u/IU/mL (0.36-3.74)
[2022-12-15 16:08] LABS: Alanine Aminotransferase 18 U/L (14-59); Albumin Level 3.8 g/dL (3.4-5.0); Alkaline Phosphatase 52 U/L (46-116); Anion Gap 10 mmol/L (8-16); Aspartate Amino Transferase 12 U/L (15-37); Bilirubin,Total 0.2 mg/dL (0.00-1.00); Blood Urea Nitrogen 12 mg/dL (7-18); Calcium 8.7 mg/dL (8.5-10.1); Carbon Dioxide 25 mmol/L (21-32); Chloride 105 mmol/L (98-108); Estimated Glomerular Filt Rate > 60; Folic Acid 7.2 ng/mL (8.6->20); Glucose 105 mg/dL (70-99); Osmolality Calculated 289 mOsm/kg (285-295); Potassium 4.3 mmol/L (3.5-5.1); Sodium 140 mmol/L (136-145); Total Protein 7.3 g/dL (6.4-8.2); Vitamin B12 185 pg/mL (193-986)
== END 2022-12-15 15:02 | disposition home or self-care (01) ==
LOC: CHSLAB 15:03
PROVIDERS: PCP Family Medicine; Visit Provider Family Medicine
DX: E53.8 Deficiency of other specified B group vitamins (principal); E11.9 Type 2 diabetes mellitus without complications; I10 Essential (primary) hypertension
CPT/HCPCS: 36415; 80053; 82607; 82746; 84443; 85027

== ENCOUNTER 2023-09-28 07:31 | Outpatient (CLI) | payer OTHER, SELFPAY ==
--- NOTE | ~2023-09-28 | US_ITS ---
Abdominal Sonogram: Real-time sonographic imaging of the abdomen was performed. Clinical History: Congenital diaphragmatic hernia Findings: The liver appears normal with no evidence of mass lesion or bile duct dilatation. Main por candida vein demonstrates normal direction of flow. The spleen is normal in size without evidence of foca l lesion. The gallbladder is well distended, and appears normal with no evidence of gallstone or wal l thickening. The common bile duct measures 5 mm. The visualized pancreas, aorta, and IVC are unrema rkable. The right kidney measures 11.6 cm in length and the left kidney measures 10.6 cm. There is no hydronephrosis or renal calculus. Impression: Unremarkable abdominal ultrasound. Reviewed, dictated and finalized at location . 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
[2023-09-28 07:48] LABS: Basophils Absolute Auto 0.06 K/mm3 (0.00-0.10); Basophils Percent Auto 0.9 % (0.0-1.0); Eosinophils Absolute Auto 0.17 K/mm3 (0.02-0.50); Eosinophils Percent Auto 2.4 % (1.0-6.0); Hematocrit 40.9 % (35.0-49.0); Hemoglobin 13.7 g/dL (12.0-15.0); Immature Granulocyte Absolute 0.02 K/mm3 (0.00-0.00); Immature Granulocyte Percent A 0.3 % (0.0-0.0); Lymphocytes Absolute Auto 2.14 K/mm3 (1.10-4.50); Lymphocytes Percent Auto 30.7 % (18.0-42.0); Mean Corpuscular HGB Conc 33.5 g/dL (32.0-36.0); Mean Corpuscular Hemoglobin 29.8 pg (27.0-31.0); Mean Corpuscular Volume 88.9 fL (78.0-102.0); Mean Platelet Volume 9.8 fl (9.2-11.8); Monocytes Absolute Auto 0.63 K/mm3 (0.10-0.90); Neutrophils Percent Auto 56.7 % (50.0-70.0); Platelet Count Result 315 K/mm3 (150-420); Red Cell Distribution Width 12.7 % (11.6-14.4)
[2023-09-28 08:05] LABS: Hemoglobin A1C 5.2 % (<5.7)
[2023-09-28 08:37] LABS: Alanine Aminotransferase 22 U/L (14-59); Albumin Level 3.8 g/dL (3.4-5.0); Alkaline Phosphatase 42 U/L (46-116); Anion Gap 6 mmol/L (8-16); Aspartate Amino Transferase < 10 U/L (15-37); Bilirubin,Total 0.5 mg/dL (0.00-1.00); Blood Urea Nitrogen 9 mg/dL (7-18); Calcium 8.8 mg/dL (8.5-10.1); Carbon Dioxide 28 mmol/L (21-32); Chloride 102 mmol/L (98-108); Cholesterol 202 mg/dL (0-200); Estimated Glomerular Filt Rate > 60; Glucose 98 mg/dL (70-99); HDL Direct 53 mg/dL (40-60); LDL Cholesterol Calculated 133 mg/dL (<130); Lipase 33 U/L (16-77); Osmolality Calculated 280 mOsm/kg (285-295); Potassium 4.3 mmol/L (3.5-5.1); Sodium 136 mmol/L (136-145); Total Protein 6.8 g/dL (6.4-8.2); Triglycerides 78 mg/dL (0-150)
[2023-09-28 08:39] LABS: CRP < 0.5 mg/dL (0.0-0.9)
[2023-10-06 04:06] LABS: Hepatitis A Antibody IgM Nonreactive; Hepatitis B Core Antibody Nonreactive (Nonreactive); Hepatitis B Surface Antigen Nonreactive (Nonreactive); Hepatitis C Virus Antibody Nonreactive
== END 2023-09-28 07:32 | disposition home or self-care (01) ==
PROVIDERS: PCP Family Medicine; Visit Provider Nurse Practitioner Family
DX: Z00.00 Encounter for general adult medical examination without abnormal findings (principal); Z83.3 Family history of diabetes mellitus; R10.11 Right upper quadrant pain; Q79.0 Congenital diaphragmatic hernia
CPT/HCPCS: 36415; 76700; 80053; 80061; 80074; 83036; 83690; 85025; 86140

== ENCOUNTER 2023-11-30 15:18 | Outpatient (CLI) | payer OTHER, SELFPAY ==
--- NOTE | ~2023-11-30 | MM_ITS ---
EXAMINATION: MM screening liv BI w noel HISTORY: Screening mammogram TECHNIQUE: Craniocaudal and mediolateral oblique 3-D tomosynthesis images were obtained and synthetic 2-D images were generated. CAD analysis was submitted and interpreted. COMPARISON: 08/20/2022 bilateral screening mammogram 07/21/2021 diagnostic right mammogram and limited right breast ultrasound 06/30/2021 bilateral screening mammogram BREAST PARENCHYMAL COMPOSITION: FINDINGS: There is no evidence of suspicious mass, calcification, or architectural distortion to sugg est malignancy in either breast. There has been no suspicious interval change. IMPRESSION: 1. No mammographic evidence of malignancy. 2. Recommend routine screening mammography in one year. BI-RADS Category 1: Negative Reviewed, dictated and finalized at location A. [employer]ING
== END 2023-11-30 15:19 | disposition home or self-care (01) ==
LOC: ANHIMG 15:22
PROVIDERS: PCP Family Medicine; Visit Provider Obstetrics & Gynecology
DX: Z12.31 Encounter for screening mammogram for malignant neoplasm of breast (principal)
CPT/HCPCS: 77063; 77067